=== PATIENT | female | born 1975 | race Caucasian/White ===

== ENCOUNTER 2019-01-19 11:03 | Emergency (ER) | payer OTHER ==
[~2019-01-19] VITALS: Ht 167.6 cm; Wt 72.6 kg
[2019-01-19] MEDS ORDERED: ULTRACET PO (14:05)
== END 2019-01-19 14:55 | disposition home or self-care (01) ==
LOC: ER 11:03
DX: M26.69 Other specified disorders of temporomandibular joint (principal)